=== PATIENT | female | born 1960 ===

== ENCOUNTER 2017-05-31 06:40 | Day surgery (SDC) | payer OTHER ==
[2017-05-31 07:08] VITALS: O2SAT 100
--- NOTE | 2017-05-31 08:38 | CP.SDSHP ---
Same Day Surgery H & P - History Proposed Procedure: EGD Pre-Op Diagnosis: SEE NOTES - Previous Medical/Surgical History Cardiac: Hypertension Endocrine/Metabolic: Diabetes Misc: Other Pain: 4.Moderate Pain - Allergies Allergies: Allergies No Known Allergies Allergy (Verified 12/26/12 08:03) - Physical Exam General Appearance: N Vital Signs: Vital Signs 05/31/17 06:51 Temperature 96.6 F L Pulse Rate 52 L Respiratory 18 Rate Blood Pressure 122/65 O2 Sat by Pulse 100 Oximetry Mental Status: Alert & Oriented x3 Neuro: WNL Heart: Other Lungs: WNL GI: Other - {Optional Preform as Required} Breast: WNL Abdomen: Other Rectal: Other Integument: WNL : WNL Ortho: WNL ENT: WNL - Impression Pt. Evaluated Today:Candidate for Anesthesia & Procedure: Yes - Date & Time Time: 08:38 Short Stay Discharge - Short Stay Discharge Admitting Diagnosis/Reason for Visit: DYSPEPSIA Disposition: HOME/ ROUTINE
[2017-05-31] MEDS ORDERED: Lactated Ringer's 500 ML IV ONE ×2 (08:39)
[2017-05-31] MEDS ORDERED: Propofol 10 mg/ml Inj (20 ML) ONE (08:41)
[2017-05-31 09:08] VITALS: TEMP 98.4
[2017-05-31] MEDS ORDERED: Belladonna-Phenobarbital PO ONE (09:10)
[2017-05-31] MEDS ORDERED: Pantoprazole 40 mg EC Tab PO ONE (09:15)
[2017-05-31 09:39] VITALS: PULSE 55
[2017-05-31 09:43] VITALS: BP 127/73; RESP 15
== END 2017-05-31 09:54 | disposition home or self-care (01) ==
LOC: C.ENDO 06:40
PROVIDERS: ATTEND Specialist
DX: K29.70 Gastritis, unspecified, without bleeding (principal); K30 Functional dyspepsia; B96.81 Helicobacter pylori [H. pylori] as the cause of diseases classified elsewhere; E11.9 Type 2 diabetes mellitus without complications; I10 Essential (primary) hypertension; K20.9 Esophagitis, unspecified; K44.9 Diaphragmatic hernia without obstruction or gangrene; K29.00 Acute gastritis without bleeding
CPT/HCPCS: 43239; 82948; 88305; J2001; J2704; J7120

== ENCOUNTER 2017-06-02 06:35 | Day surgery (SDC) | payer OTHER ==
[2017-06-02 07:00] VITALS: BMI 23.2
[2017-06-02 07:16] VITALS: TEMP 97.3; O2SAT 100
--- NOTE | 2017-06-02 08:24 | CP.SDSHP ---
Same Day Surgery H & P - History Proposed Procedure: colonscopy Pre-Op Diagnosis: SEE NOTES - Previous Medical/Surgical History Cardiac: Hypertension Endocrine/Metabolic: Diabetes, Other Misc: Other Pain: 4.Moderate Pain - Allergies Allergies: Allergies No Known Allergies Allergy (Verified 12/26/12 08:03) - Physical Exam General Appearance: N Vital Signs: Vital Signs 06/02/17 07:03 Temperature 97.3 F L Pulse Rate 65 Respiratory 16 Rate Blood Pressure 97/54 L O2 Sat by Pulse 100 Oximetry Mental Status: Alert & Oriented x3 Neuro: WNL Heart: Other Lungs: WNL GI: Other - {Optional Preform as Required} Breast: WNL Abdomen: Other Rectal: Other Integument: WNL : WNL Ortho: Other ENT: WNL - Impression Pt. Evaluated Today:Candidate for Anesthesia & Procedure: Yes - Date & Time Time: 08:23 Short Stay Discharge - Short Stay Discharge Admitting Diagnosis/Reason for Visit: DIARRHEA / RECTAL BLEEDING Disposition: HOME/ ROUTINE
[2017-06-02] MEDS ORDERED: Lactated Ringer's 1,000 ML IV ONE (08:25)
[2017-06-02] MEDS ORDERED: Propofol 10 mg/ml Inj (20 ML) ONE (08:34)
[2017-06-02] MEDS ORDERED: Belladonna-Phenobarbital PO ONE (09:10)
[2017-06-02 09:33] VITALS: BP 117/65; PULSE 68; RESP 14
== END 2017-06-02 10:20 | disposition home or self-care (01) ==
LOC: C.ENDO 06:35
PROVIDERS: ATTEND Specialist
DX: K58.0 Irritable bowel syndrome with diarrhea (principal); K52.9 Noninfective gastroenteritis and colitis, unspecified; K64.4 Residual hemorrhoidal skin tags; K64.8 Other hemorrhoids; K60.2 Anal fissure, unspecified; K63.89 Other specified diseases of intestine
CPT/HCPCS: 45380; 82948; 88305; J2704; J7120

== ENCOUNTER 2017-12-26 10:24 | Emergency (ER) | payer OTHER ==
[2017-12-26 10:24] VITALS: BMI 23.2
[2017-12-26 10:32] VITALS: TEMP 97.6; O2SAT 97
[2017-12-26] MEDS ORDERED: Bacitracin 500 Units/gm Oint Foilpak UD TOP ONE (10:59)
[2017-12-26] MEDS ORDERED: Bacitracin 500 Units/gm Oint Foilpak UD ONE (11:07)
--- NOTE | 2017-12-26 12:26 | C.PDOC ---
History Of Present Illness 57 year old female presents to the ED for evaluation of left lower rib, tail bone, and lower back pain s/p slip and fall down the stairs injury sustained today. Denies numbness, tingling, headache, LOC, other injuries, chest pain, palpitations, abdominal pain, and any other associated symptoms. Time Seen by Provider: 12/26/17 10:55 Chief Complaint (Nursing): Back Pain History Per: Patient History/Exam Limitations: no limitations Onset/Duration Of Symptoms: Hrs Current Symptoms Are (Timing): Still Present Past Medical History Reviewed: Historical Data, Nursing Documentation, Vital Signs Vital Signs: Last Vital Signs Temp 97.6 F 12/26/17 10:29 Pulse 66 12/26/17 10:29 Resp 18 12/26/17 10:29 BP 117/78 12/26/17 10:29 Pulse Ox 97 12/26/17 10:29 - Medical History PMH: Gastritis, Gall Bladder Disease, HTN Denies: Chronic Kidney Disease Surgical History: Appendectomy, Cholecystectomy, Endoscopy - [facility] Procedures CLOSED ENDOSCOPIC BIOPSY OF LARGE INTESTINE (12/26/12) Family History: States: Unknown Family Hx - Social History Hx Alcohol Use: No Hx Substance Use: No Review Of Systems Constitutional: Negative for: Other (other injuries. ) Cardiovascular: Negative for: Chest Pain, Palpitations Gastrointestinal: Negative for: Abdominal Pain Musculoskeletal: Positive for: Back Pain (lower back.), Other ((+) tail bone pain. (+) lower left rib pain.) Neurological: Negative for: Weakness, Numbness, Incoordination, Headache, Other (LOC.) Physical Exam - Physical Exam Appears: Non-toxic, Other (mild discomfort. ) Skin: Normal Color, Warm, Dry, Other (right upper arm: posterior aspect 1 cm abrasion.) Head: Atraumatic, Normacephalic Eye(s): bilateral: Normal Inspection Neck: Normal ROM, Supple Chest: Symmetrical, No Deformity, Tenderness (to palpation over the left lower ribs posterior aspect. ) Cardiovascular: Rhythm Regular, No Murmur Respiratory: Normal Breath Sounds, No Rales, No Rhonchi, No Wheezing Back: Other (tenderness to palpation over the coccyx area.) Extremity: Normal ROM, Capillary Refill (less than 2 seconds. ), No Deformity Neurological/Psych: Oriented x3, Normal Speech, Normal Motor, Normal Sensation, Normal Reflexes ED Course And Treatment O2 Sat by Pulse Oximetry: 97 (RA) Pulse Ox Interpretation: Normal - Other Rad LS x-ray X-Ray: Interpreted by Me, Viewed By Me CXR X-Ray: Interpreted by Me, Viewed By Me Sacrum/Coccyx X-ray X-Ray: Interpreted by Me, Viewed By Me Medical Decision Making Medical Decision Making: Plan: -CXR LS X-ray Sacrum/Coccyx X-ray Bacitracin Cyclobenzaprine Motrin Progress/Update: X-rays viewed by me, rib x-ray showed rib fracture. Other x-rays appeared normal. Results discussed with the patient. Patient stable for discharge home. Prescribed Flexeril and Naproxen. Disposition Counseled Patient/Family Regarding: Studies Performed, Diagnosis, Need For Followup, Rx Given - Disposition Referrals: Fareed Barker MD [Staff Provider] - Disposition: HOME/ ROUTINE Disposition Time: 12:45 Condition: STABLE Additional Instructions: FOLLOW UP WITH YOUR DOCTOR IN 1-2 DAYS USE MEDICATIONS NEEDED RETURN TO ER IF SYMPTOMS WORSEN Prescriptions: Cyclobenzaprine [Flexeril] 10 mg PO BID PRN #15 tab PRN Reason: Muscle Spasm Naproxen 375 mg PO BID PRN #20 tablet PRN Reason: pain Instructions: Rib Fracture (DC), Lumbar Muscle Strain (DC), Coccyx Injury (DC) Forms: [employer] (Rw[place]an) Print Language: FRENCH - POA Present On Arrival: Falls Or Trauma - Clinical Impression Clinical Impression: Left rib fracture, Coccyx sprain, Lumbar sprain - Scribe Statement The provider has reviewed the documentation as recorded by the Scribe (Tawanna Gong) Provider Attestation: All medical record entries made by the Scribe were at my direction and personally dictated by me. I have reviewed the chart and agree that the record accurately reflects my personal performance of the history, physical exam, medical decision making, and the department course for this patient. I have also personally directed, reviewed, and agree with the discharge instructions and disposition.
--- NOTE | 2017-12-26 13:35 | RAD ---
Date of service: 12/26/2017 PROCEDURE: Radiographs of the Chest and Left Ribs. HISTORY: LEFT RIB PAIN AFTER FALL COMPARISON: None available. TECHNIQUE: Frontal radiograph of the chest and multiple oblique radiographs of the left ribs were obtained. FINDINGS: LEFT RIBS: No fracture or focal lesion visualized. LUNGS: Clear. PLEURA: No pneumothorax or pleural fluid. CARDIOVASCULAR: Normal cardiac size. No pulmonary vascular congestion. No aortic atherosclerotic calcification present OTHER FINDINGS: None. IMPRESSION: Unremarkable radiographs of the chest and left ribs. No left rib fracture is identified..
--- NOTE | 2017-12-26 13:36 | RAD ---
Date of service: 12/26/2017 PROCEDURE: Radiographs of the Sacrum and Coccyx HISTORY: LOW BACK/TAILBONE PAIN AFTER FALL COMPARISON: None available. TECHNIQUE: Frontal and lateral views of the sacrum and coccyx FINDINGS: BONES: Sacrum and coccyx unremarkable. No fracture or focal lesion. SACROILIAC JOINTS: Unremarkable. OTHER FINDINGS: None. IMPRESSION: Unremarkable radiographs of the sacrum and coccyx.
--- NOTE | 2017-12-26 13:37 | RAD ---
Date of service: 12/26/2017 PROCEDURE: Radiographs of the Lumbar Spine. HISTORY: LOW BACK PAIN AFTER FALL COMPARISON: No prior. FINDINGS: BONES: Normal alignment. No listhesis. No fracture. DISC SPACES: Unremarkable. OTHER FINDINGS: None. IMPRESSION: Unremarkable radiographs of the lumbar spine.
[2017-12-27 00:16] VITALS: BP 106/69; PULSE 70; RESP 16
== END 2017-12-26 13:03 | disposition home or self-care (01) ==
LOC: C.ER 10:24
DX: S22.32XA Fracture of one rib, left side, initial encounter for closed fracture (principal); S33.8XXA Sprain of other parts of lumbar spine and pelvis, initial encounter; S33.5XXA Sprain of ligaments of lumbar spine, initial encounter; W10.9XXA Fall (on) (from) unspecified stairs and steps, initial encounter